=== PATIENT | female | born 1940 | race Two or more races ===

== ENCOUNTER 2024-11-03 17:27 | Emergency (ER) | payer OTHER ==
[~2024-11-03] VITALS: Ht 165.1 cm; Wt 84.8 kg
[2024-11-03 17:34] VITALS: TEMP 98.6
[2024-11-03] MEDS: IV NS 0.9% 1,000 ML BAG IV ONE (17:58)
[2024-11-03 18:04] LABS: SITE, VBG VBG - N/A; VBG BASE EXCESS -5.2 mmol/L (-2.0-3.0); VBG COHb 0.7 % (0.5-1.5); VBG MetHb 0.2 % (0.5-1.5); VBG O2Hb 81.3 % (0-79); VBG PCO2 37.8 mmHg (38.0-54.0); VBG PH 7.341 (7.320-7.430); VBG TOTAL HEMOGLOBIN 11.5 G/dL (12.0-16.0)
[2024-11-03] MEDS: CEFEPIME 1 GM in IV D5W 50 ML IV ONE (18:10)
[2024-11-03 18:34] LABS: BASOPHILS # (AUTO) 0.2 K/uL (0.0-0.2); BASOPHILS % (AUTO) 1.3 % (0.0-2.0); CALCIUM, SERUM 9.1 mg/dL (8.5-10.1); CARBON DIOXIDE 22 mmol/L (21-32); CHLORIDE 96 mmol/L (98-107); CREATININE 1.9 mg/dL (0.6-1.3); EOSINOPHILS # (AUTO) 0.1 K/uL (0.0-0.7); HEMATOCRIT 33 % (33-45); HEMOGLOBIN 10.4 g/dL (11.5-14.8); LYMPHOCYTES # (AUTO) 5.6 K/uL (0.8-4.8); LYMPHOCYTES % (AUTO) 48.8 % (20.0-44.0); MEAN CORPUSCULAR HEMOGLOBIN 27 PG (26.0-33.0); MEAN CORPUSCULAR HGB CONC 32 g/dl (31.0-36.0); MEAN CORPUSCULAR VOLUME 86 fL (82-100); MONOCYTES # (AUTO) 0.5 K/uL (0.1-1.30); MONOCYTES % (AUTO) 4.7 % (2.0-12.0); NEUTROPHILS # (AUTO) 5.1 K/uL (1.8-8.9); NEUTROPHILS % (AUTO) 44.2 % (43.0-81.0); PLATELET COUNT (AUTO) 245 K/uL (150-450); POTASSIUM 4.6 mmol/L (3.5-5.1); RED BLOOD CELL COUNT(AUTO) 3.83 MIL/uL (4.0-5.2); RED CELL DISTRIBUTION WIDTH 17.4 % (11.5-15.0); SODIUM SERUM 128 mmol/L (136-145); WHITE BLOOD COUNT (AUTO) 11.6 K/uL (4.3-11.0)
[2024-11-03 18:35] LABS: INR 0.93 (0.91-1.10); PARTIAL THROMBOPLASTIN TIME 28.4 SEC (24.3-34.3); PROTHROMBIN TIME 9.9 SECS (9.2-11.1)
[2024-11-03 18:38] LABS: LACTIC ACID 0.5 mmol/L (0.4-2.0)
[2024-11-03 18:40] LABS: GLUCOSE 743 mg/dL (74-106); UREA NITROGEN, BLOOD 81 mg/dL (7-18)
[2024-11-03] MEDS: VANCOMYCIN 1 GM in IV D5W 250 ML IV ONE (18:45)
[2024-11-03 18:52] LABS: ALKALINE PHOSPHATASE 1234 U/L (46-116); BILIRUBIN,TOTAL 14.9 mg/dL (0.2-1.0)
[2024-11-03 18:53] LABS: ALANINE AMINOTRANSFERASE 79 U/L (12-78); ALBUMIN 1.5 g/dL (3.4-5.0); ASPARTATE AMINOTRANSFERASE 40 U/L (15-37)
[2024-11-03 18:54] LABS: TOTAL PROTEIN, SERUM 6.9 g/dL (6.4-8.2)
[2024-11-03] MEDS ORDERED: INSULIN REGULAR, HUMAN 100 UNIT/ML 10 ML VIAL ONE (19:33)
[2024-11-03] MEDS: INSULIN REGULAR, HUMAN 100 UNIT/ML 10 ML VIAL SQ ONE (19:35)
[2024-11-03 21:16] VITALS: BP 113/90; O2SAT 96
== END 2024-11-03 22:15 | disposition short-term general hospital (02) ==
LOC: ER 17:29
DX: E11.622 Type 2 diabetes mellitus with other skin ulcer (principal); L03.115 Cellulitis of right lower limb; L03.116 Cellulitis of left lower limb; I10 Essential (primary) hypertension; E80.6 Other disorders of bilirubin metabolism
CPT/HCPCS: 99285; 74176; 96365; 76700; 71045; 96367; 93005; 82803; 84145; 85025; 80048; 87040 ×2; 82010; 83605; 83690; 80076; 36415; 84484 ×2; 85730; 82962 ×3; J1815; J3370; J7060; J7030; J0692; 87186-TC